=== PATIENT | female | born 1990 | race Caucasian/White ===

== ENCOUNTER 2017-07-03 22:17 | Emergency (ER) | payer SELFPAY ==
[~2017-07-03] VITALS: Ht 165.1 cm; Wt 104.3 kg
[~2017-07-03 22:17] MED LIST: AMOXICILLIN500 MG PO; CLINDAMYCIN HC300 MG PO; FLEXERIL10 MG PO; K-TAB20 MEQ PO; LASIX40 MG PO; MOTRIN800 MG PO; NAPROSYN500 MG PO; NKHM; PROZAC20 MG PO; ROBAXIN500 MG PO; ROBAXIN750 MG PO; TRAMADOL HCL50 MG PO; VICODIN 5/500 505 M1 PO; VICODIN 5/500 505 MG PO; XANAX0.5 MG PO
[2017-07-03] MEDS ORDERED: GRALISE300 M1 PO (22:26)
== END 2017-07-03 23:00 | disposition home or self-care (01) ==
LOC: ED 22:17
DX: B34.9 Viral infection, unspecified (principal); F17.200 Nicotine dependence, unspecified, uncomplicated

== ENCOUNTER 2017-08-19 18:27 | Emergency (ER) | payer SELFPAY ==
[~2017-08-19] VITALS: Wt 104.3 kg
[~2017-08-19 18:27] MED LIST changes: +GRALISE300 M1 PO
[2017-08-19] MEDS ORDERED: NAPROSYN500 MG PO (18:37)
== END 2017-08-19 19:31 | disposition home or self-care (01) ==
LOC: ED 18:27
DX: S93.402A Sprain of unspecified ligament of left ankle, initial encounter (principal); R03.0 Elevated blood-pressure reading, without diagnosis of hypertension; W01.0XXA Fall on same level from slipping, tripping and stumbling without subsequent striking against object, initial encounter; Y93.89 Activity, other specified; Y92.89 Other specified places as the place of occurrence of the external cause; Y99.9 Unspecified external cause status

== ENCOUNTER 2023-07-06 14:41 | Emergency (ER) | payer SELFPAY | END 2023-07-06 16:43 | disposition left against medical advice (07) | LOC: ED 14:41 | DX: T14.8XXA Other injury of unspecified body region, initial encounter (principal); Z53.21 Procedure and treatment not carried out due to patient leaving prior to being seen by health care provider; X58.XXXA Exposure to other specified factors, initial encounter; Y93.89 Activity, other specified; Y92.89 Other specified places as the place of occurrence of the external cause; Y99.8 Other external cause status ==

== ENCOUNTER 2024-12-27 11:51 | Emergency (ER) | payer OTHER ==
[~2024-12-27] VITALS: Ht 165.1 cm; Wt 83.9 kg
[2024-12-27] MEDS ORDERED: PROPRANOLOL HCL40 MG PO (12:06)
[2024-12-27] MEDS ORDERED: LISINOPRIL40 MG PO (12:06)
[2024-12-27 12:37] LABS: BASO # 0.0 10*3/uL (0.0-0.1); BASO % 0.3 % (0.0-1.0); EOS # 0.2 10*3/uL (0.0-0.4); EOS % 2.4 % (1.0-4.0); MEAN CELL VOLUME 91.4 fl (81.0-99.0); MEAN CORPUSCULAR HGB 30.6 pg (27.0-31.0); MEAN PLATELET VOLUME 9.0 fl (9.6-12.3); MONO # 0.4 10*3/uL (0.1-1.0); MONO % 6.3 % (3.0-9.0); NEUT # 3.5 10*3/uL (2.3-7.9); NEUT % 56.2 % (47.0-73.0); NUCLEATED RED BLOOD CELL 0.0 % (0.0-0.0); NUCLEATED RED BLOOD CELL 0.0 10*3/uL (0.0-0.0); PLATELET COUNT AUTOMATED 317 10*3/uL (130-400); RED CELL DISTRI WIDTH 12.0 % (0-14.5)
[2024-12-27 13:07] LABS: BUN 13 mg/dl (9-23)
[2024-12-27 13:15] LABS: BILIRUBIN Negative (Negative); BLOOD Negative (Negative); CLARITY Clear (Clear); COLOR Yellow (Yellow); KETONE Negative (Negative); LEUKO ESTERASE Negative (Negative); NITRITE Negative (Negative); PH 7.5 (4.5-8.0); SPECIFIC GRAVITY 1.010 (1.001-1.030); UROBILINOGEN 0.2 E.U./dl (0.0-1.0)
[2024-12-27 13:43] LABS: BACTERIA TRACE
== END 2024-12-27 14:54 | disposition home or self-care (01) ==
LOC: ED 11:51
PROVIDERS: Nurse Practitioner Family
DX: R07.89 Other chest pain (principal); I10 Essential (primary) hypertension; Z79.899 Other long term (current) drug therapy